=== PATIENT | female | born 1945 | race Native Hawaiian/Other Pacific Islander ===

== ENCOUNTER 2019-08-23 18:00 | Outpatient (CLI) | payer OTHER, BC | END 2019-08-23 18:05 | disposition short-term general hospital (02) | LOC: AMB 18:00 | DX: I46.9 Cardiac arrest, cause unspecified (principal) | CPT/HCPCS: A0425; A0433 ==

== ENCOUNTER 2019-08-23 18:20 | Emergency (ER) | payer OTHER, BC ==
[~2019-08-23] VITALS: Ht 167.6 cm; Wt 59.0 kg
== END 2019-08-23 19:20 | disposition expired ==
LOC: ED 18:20
DX: I46.9 Cardiac arrest, cause unspecified (principal)
CPT/HCPCS: 92950; 99285; 99291